=== PATIENT | male | born 1955 | race Caucasian/White ===

== ENCOUNTER 2022-02-10 18:12 | Emergency (ER) | payer OTHER, MEDICAID ==
[~2022-02-10 18:12] MED LIST: Ondansetron 4 MG/2 ML SDV IVPUSH ONE
[2022-02-10] MEDS ORDERED: fentaNYL 100 MCG/2 ML SDV IVPUSH ONE (18:13)
[2022-02-10] MEDS ORDERED: fentaNYL 100 MCG/2 ML SDV ONE (18:14)
[2022-02-10] MEDS ORDERED: Diphtheria,Pertussis(Acell),Tetanus Vaccine 0.5 ML Syringe IM ONE (18:14)
[2022-02-10] MEDS ORDERED: Sodium Chloride 0.9% 2.5 ML Syringe FLUSH PRN ×2 (18:14)
[2022-02-10] MEDS ORDERED: Sodium Chloride 0.9% 10 ML Syringe FLUSH PRN ×2 (18:14)
[2022-02-10] MEDS ORDERED: Sodium Chloride 0.9% 1,000 ML IV ONE (18:14)
[2022-02-10] MEDS ORDERED: ceFAZolin 2 GM in Premix Bag 1 BAG IV STA (18:21)
[2022-02-10] MEDS ORDERED: Iopamidol 755 MG/ML 500 ML Multipack Bottle IVPUSH STA (18:51)
[2022-02-10 19:02] LABS: BLOOD UREA NITROGEN,BUN 39 mg/dL (7.0-18.0); CARBON DIOXIDE,CO2 21.2 mmol/L (21.0-32.0); CHLORIDE,CL 100 mmol/L (98-107); ESTIMATED GFR 28 mL/min (>60); GLUCOSE RANDOM 192 mg/dL (74-106); POTASSIUM,K 4.6 mmol/L (3.5-5.1); SODIUM,NA 134 mmol/L (136-148)
[2022-02-10] MEDS ORDERED: Tranexamic Acid 1,000 MG/10 ML Vial IV ONE (20:04)
[2022-02-10] MEDS ORDERED: HYDROmorphone 1 MG/ML Syringe IVPUSH ONE (20:19)
[2022-02-10 20:50] LABS: CORONAVIRUS COVID-19 NAA POSITIVE (NEGATIVE); INFLUENZA A NAA NEGATIVE (NEGATIVE); INFLUENZA B NAA NEGATIVE (NEGATIVE); RESPIRATORY SYNCYTIAL VIR NAA NEGATIVE (NEGATIVE)
[2022-02-10] MEDS ORDERED: Factor IX Complex Human 500 UNIT VIAL IV ONE (21:45)
[2022-02-10] MEDS ORDERED: Factor IX Complex Human 1,000 UNIT VIAL IV ONE (21:45)
[2022-02-10] MEDS ORDERED: fentaNYL 50 MCG/ML SDV IVPUSH ONE (22:39)
== END 2022-02-10 23:50 ==
LOC: MW.ED 18:12
DX: S92.252A Displaced fracture of navicular [scaphoid] of left foot, initial encounter for closed fracture (principal); S92.101B Unspecified fracture of right talus, initial encounter for open fracture; Z20.822 Contact with and (suspected) exposure to COVID-19; S36.113A Laceration of liver, unspecified degree, initial encounter; R91.1 Solitary pulmonary nodule; K66.1 Hemoperitoneum; U07.1 COVID-19; F10.920 Alcohol use, unspecified with intoxication, uncomplicated; V49.40XA Driver injured in collision with unspecified motor vehicles in traffic accident, initial encounter; Y92.488 Other paved roadways as the place of occurrence of the external cause
CPT/HCPCS: 0241U; 36415; 36430; 70450; 71260; 72125; 72128; 72131; 73090; 73590; 73610; 73620; 74177; 80053; 80307; 85025; 85610; 86850; 86900; 86901; 86920; 90471; 90715; 96365; 96367; 96375; 96376; 99291; J0690; J1170; J3010; J7030; J7168; P9016; Q9967